=== PATIENT | female | born 1995 | race Caucasian/White ===

== ENCOUNTER 2024-07-23 23:47 | Observation (INO) | payer MEDICAID, SELFPAY ==
[2024-07-23 23:55] VITALS: BP 111/55; PULSE 67; PULSE 97; RESP 17; RESP 99; TEMP 36.5; O2SAT 98
[2024-07-24] VITALS: BP 104/59; PULSE 75
[2024-07-24 00:06] VITALS: BMI 32.5
[2024-07-24 00:27] VITALS: BP 100/53; PULSE 68
[2024-07-24 00:37] LABS: ROM Kit Lot # 578010271; ROM Swab Mixed By: JP; Rupture of Fetal Membranes Negative (Negative); Swb Mxed in Solvent 1 min? Yes
[2024-07-24 00:55] VITALS: BP 104/55; PULSE 66
[2024-07-24 01:05] LABS: ROM Kit Lot # 578010271
[2024-07-24 01:06] LABS: ROM Swab Mixed By: JP; Rupture of Fetal Membranes Negative (Negative); Swb Mxed in Solvent 1 min? Yes
== END 2024-07-24 01:25 | disposition home or self-care (01) ==
PROVIDERS: Admitting Provider Obstetrics & Gynecology; Visit Provider Obstetrics & Gynecology
DX: Z34.83 Encounter for supervision of other normal pregnancy, third trimester (principal); Z3A.37 37 weeks gestation of pregnancy
CPT/HCPCS: 59025; 59899; 84112

== ENCOUNTER 2024-08-13 04:52 | Inpatient (IN) | payer MEDICAID, SELFPAY ==
[2024-08-13] VITALS (163 sets, daily range): BP systolic 95–133; BP diastolic 50–85; PULSE 56–102; RESP 15–98; TEMP 36.6–37.6; O2SAT 77–100; BMI 31.6
[2024-08-13] MEDS: fentaNYL CIT INJ 50 mCg/ML AMP 2ML 100 MCG IVP ×2 (06:39→11:55)
[2024-08-13] MEDS: RINGERS LACTATED 1000 ML 1,000 ML 999 ML IV ×2 (06:39→08:20)
[2024-08-13 07:24] LABS: Amphetamine/Metham Scrn,Ur OB Negative (Negative); Benzoylecgonine Screen, Ur OB Negative (Negative); Opiate Screen,Urine OB Negative (Negative); THC Screen,Urine OB Positive (Negative); THC U Confirm* See Sep Rpt
[2024-08-13 07:44] LABS: Basophils % (Auto) 0 % (0-2.5); Eosinophils # (Auto) 0.1 Thou/mm3 (0.0-0.5); Eosinophils % (Auto) 1 % (0-10); Hematocrit 32.4 % (36.0-46.0); Hemoglobin 11.7 g/dL (12.0-16.0); Immature Granulocytes % (Auto) 1 % (0-0); Immature Granulocytes Auto 0.14 Thou/mm3 (0.00-0.00); Lymphocytes # (Auto) 1.5 Thou/mm3 (1.0-4.8); Lymphocytes % (Auto) 12 % (10-50); Mean Corpuscular HGB Conc 36.1 g/dl (31.0-37.0); Mean Corpuscular Hemoglobin 30.5 pg (25.0-35.0); Mean Corpuscular Volume 84 fL (80-100); Monocytes # (Auto) 0.7 Thou/mm3 (0.0-0.8); Monocytes % (Auto) 5 % (0-12); Neutrophils # (Auto) 10.1 Thou/mm3 (1.8-7.7); Neutrophils % (Auto) 81 % (37-80); Nucleated Red Blood Cell % 0 /100 WBC (0); Platelet Count 138 Thou/mm3 (140-440); Red Blood Count 3.84 Miln/mm3 (4.00-5.20); White Blood Count 12.6 Thou/mm3 (3.6-11.0)
[2024-08-13 07:44] LABS: Syphilis Nonreactive (Nonreactive)
--- NOTE | 2024-08-13 08:16 | PD.LDHP ---
Documentation for date of: 08/13/24 OB Labor/Induct. HPI History of Present Illness : 4 Para: 1 Term pregnancies: 1 pregnancies: 0 Living children: 0 History of Abortions: Spontaneous and Elective: 2 History of Vaginal deliveries: 1 History of sections: No History of : No Date of last menstrual period: 12/25/23 CAMILO: 08/13/24 Gestational Age (weeks): 40 Gestational Age (days): 0 Gestational age based on last menstrual period: 33 History of present illness: Patient presents for regular, painful ctx. No LOF. No vaginal bleeding. Normal movement. No fevers/chills. History of Present Dating criteria: based on 1st trimester US only Adequate Care: Yes Narrative: : 2016, 11wk sab with D&C G2: 2018, early sab with D&C G3: term uncomplicated M 2022 G4: current, uncomplicated. Starting BMI 27, early HgbA1c 5 Labs Maternal Blood Type: B Pos Labs: Positive: Rubella Titre, Negative: RPR, Hepatitis B, HIV, Chlamydia, Gonorrhea and Group Beta Strep and Unknown: Herpes Type 1, Herpes Type 2 and Covid-19 Narrative: Starting HgbA1c 5 1hr glucola 109 Review of Systems Review of Systems Narrative Review of Systems: Review of Systems Systems Reviewed: All systems reviewed, normal except as documented Constitutional Constitutional: Denies body ache(s), Denies chills, Denies fever(s) and Denies headache(s) ENT Ears, Nose, Mouth, and Throat: Denies headache(s) and Denies vertigo Cardiovascular Cardiovascular: Denies chest pain, Denies palpitations, Denies dyspnea and Denies syncope Respiratory Respiratory: Denies cough, Denies dyspnea Gastrointestinal Gastrointestinal: Denies nausea and Denies vomiting Neurologic Neurologic: Denies convulsions, Denies headache(s), Denies other visual disturbances, Denies syncope and Denies vertigo Past Medical History Family History OTHER FAMILY HX: non-contributory Surgical History SURGICAL: Negative Section OTHER SURGICAL HX: D&C x2, tonsillectomy Social History SOCIAL: , good support. One child. No tobacco/ETOH/illicit drug use. Past Medical History Comments PMH COMMENT: Starting BMI 27 Meds Home Medications and Allergies Home Medications ?Medication ?Instructions ?Recorded ?Confirmed ?Type vit no.95-ferrous 1 tab PO QDAY 07/24/24 08/13/24 History fumarate 28 mg-folic acid 800 mcg tablet () Allergies Allergy/AdvReac Type Severity Reaction Status Date / Time No Known Allergies Allergy Verified 08/13/24 04:59 OB Exam Physical Exam Vital signs: Temp Pulse Resp BP Pulse Ox 97.8 F 73 18 124/64 100 08/13/24 05:31 08/13/24 06:19 08/13/24 04:58 08/13/24 06:19 08/13/24 08:12 Narrative: General: well developed, well nourished, no acute distress, conversant Cardiac: normal heart rate Lungs: breathing without distress Abdomen: soft, gravid, non-tender, no rebound or guarding Extremities: no pain with palpation of calves Detailed Labor and Delivery Exam Dilation (cm): 4 Effacement (%): 75 Cervix position: mid station: -2 Consistency: soft Presentation: Vertex Membranes: intact monitor accelerations: 15x15 monitor decelerations: None custodial variability: Moderate (11-25) Contraction frequency (min): q3-5min OB Results Labs 08/13/24 07:30 OB Assessment & Plan Assessment and Plan (1) Active labor at term: Status: Acute Assessment and plan: Clau is a 28yo with SIUP at 40&0wk presenting in early labor. Regular/painful contractions, SCE changed from 2cm to 4/75/-2 over time. Vitals wnl, benign exam. Reassuring assessment. PMhx/ complicated by: Starting BMI 27, early HgbA1c 5. 1hr glucola 109. Dated by 1st trimester ultrasound, dates changed from lmp Good care with Dr. Greene's office Plan: -Admit to L&D -Establish IV, routine labs -CEFM -Clear liquid diet -[employer]/consent re: -GBS status: negative -Anticipate -Safe to proceed
[2024-08-13] MEDS: OXYTOCIN in NS 20 units 20 UNIT/1,000 ML BAG 125 UNIT IV (11:52)
[2024-08-13] MEDS: LIDOCAINE HCL 1% 20 ML VIAL INFL (12:06)
[2024-08-13] MEDS: MISOPROSTOL 200 mCg TABLET 800 MCG PR (12:13)
--- NOTE | 2024-08-13 12:45 | OBDSUM_ITS ---
Data ([place]) Data Hx Section: No : 4 Term: 1 : 0 Livin Abortions: Spontaneous & Theraputic: 2 Delivery Data ([place]) Labor Data Initiation of labor: Spontaneous Induction/Augmentation Agent: None ROM date: 08/13/24 ROM time: 10:46 Amniotic membrane rupture type: Artificial Amniotic fluid description: Clear Delivery Data Complete dilation date: 08/13/24 Complete dilation time: 11:44 [place] delivery date: 08/13/24 [place] delivery time: 11:47 Placenta delivery date: 08/13/24 Placenta delivery time: 11:52 Delivered by: Ivanna Powell Delivery nurse: jennifer Mari nurse: mariaa james Support person(s) at delivery: FOB Other staff at delivery: MANUELA Landeros Delivery Method Delivery method: Normal Vaginal Delivery Presentation: Vertex Anesthesia Type Anesthesia Type: Epidural Placenta Placenta delivery description: Spontaneous EBL Estimated blood loss (ml): 300 Umbilical Cord cord description: 3 Vessels Additional Procedures Clau is a 28yo [id number] s/p uncomplicated at 40&0wk after presenting in early labor, delivering at 1147 on 08/13/2024. On presentation, SCE was 2cm. She progressed to C/C/0 at which point she began pushing. She received an epidural. With good maternal pushing efforts, 's head delivered OA and restituted MAYELA. Right anterior shoulder delivered easily followed by posterior shoulder and corpus. Gush of frankly bloody fluid occurred with delivery of shoulder- fluid previously clear. had spontaneous cry and was vigorous. Apgars 9/9. Infant placed on maternal abdomen where nose/mouth were suctioned and infant dried/stimulated. After approximately 1 minute, cord was clamped x2 and cut by FOB. Cord blood not able to be collected for typing since cord went white before it was clamped 2/2 delayed clamping. With fundal massage and cord traction, placenta delivered spontaneously and intact with 3 vessel centrally inserted cord. Bimanual massage performed and IV pitocin given per protocol with fundus then firm at u-2cm and hemostasis noted. Inspection of perineum and vagina revealed bilateral labial lacerations (Left side deep and lead a small ways into left vaginal sidewall, right side superfi cial) which were repaired in routine fashion with 4-0 and 3-0 vicryl, after anesthetizing with 1% lidocaine- total reapproximation and hemostasis achieved. Small trickle of blood, so sweep just within cervix/MARTHA performed which retrieved a modest amount of clot. Bimanual massage performed. Cytotec 800mcg MN placed for continued prophylaxis against bleeding. All counts correct x2. Mom and were doing well when I left the room. Ivanna Powell MD [place] Data ([facility]) Data [place]'s gender: Male 1 minute: 9 5 minutes: 9
[2024-08-13 18:48] LABS: Basophils % (Auto) 0 % (0-2.5); Eosinophils % (Auto) 0 % (0-10); Hematocrit 30.6 % (36.0-46.0); Hemoglobin 10.9 g/dL (12.0-16.0); Immature Granulocytes % (Auto) 1 % (0-0); Immature Granulocytes Auto 0.12 Thou/mm3 (0.00-0.00); Lymphocytes # (Auto) 1.3 Thou/mm3 (1.0-4.8); Lymphocytes % (Auto) 8 % (10-50); Mean Corpuscular HGB Conc 35.6 g/dl (31.0-37.0); Mean Corpuscular Hemoglobin 30.9 pg (25.0-35.0); Mean Corpuscular Volume 87 fL (80-100); Monocytes # (Auto) 1.2 Thou/mm3 (0.0-0.8); Monocytes % (Auto) 7 % (0-12); Neutrophils # (Auto) 14.8 Thou/mm3 (1.8-7.7); Neutrophils % (Auto) 85 % (37-80); Nucleated Red Blood Cell % 0 /100 WBC (0); Platelet Count 147 Thou/mm3 (140-440); RDW Standard Deviation 40.5 fL (36.4-46.3); Red Blood Count 3.53 Miln/mm3 (4.00-5.20); White Blood Count 17.4 Thou/mm3 (3.6-11.0)
[2024-08-13] MEDS: DOCUSATE SOD 100 MG CAPSULE PO (21:51)
[2024-08-13] MEDS: IBUPROFEN TAB 400 MG TABLET 800 MG PO (21:52)
[2024-08-14 04:10] VITALS: BP 102/72; PULSE 61; RESP 16; TEMP 36.7; O2SAT 99
--- NOTE | 2024-08-14 07:37 | PD.LDDS ---
DS: Providers Provider Date of admission: 08/13/24 06:09 Primary care physician: Physician No Primary/Family Admitting Provider: Ivanna Powell MD Attending Provider on Admission: Ivanna Powell MD Consults: 08/13/24 12:29 Referral Routine Comment: Attending Provider on DC: Ivanna Powell MD Discharging Provider: Ivanna Powell MD DS: Diagnosis Discharge Diagnosis (1) Active labor at term: Status: Acute (2) Status post vaginal delivery: Status: Acute Problem List Completed Was Problem List Reviewed/Reconciled?: Yes Summary/Hosp Course Brief History: Patient presents for regular, painful ctx. No LOF. No vaginal bleeding. Normal movement. No fevers/chills. Clau is a 28yo [id number] s/p uncomplicated at 40&0wk after presenting in labor, delivering at 1147 on 08/13/24. She has had an uncomplicated course, meeting all milestones and feels ready for discharge home. She is ambulating without lightheadedness, tolerating regular diet no n/v, spontaneously voiding without issue. She has no chest pain or shortness of breath. No fevers or chills. Minimal, appropriate discomfort. Vitals normal, benign exam. Hemodynamically stable with no evidence of infection. PP Hgb 10.9 from 11.7. Peripartum Data Delivery Method: Normal Vaginal Delivery Status at Discharge Functional status at discharge: independent ambulation Overall status at discharge: patient is back to baseline Time Spent with Patient Time attestation: Total time spent providing and/or coordinating discharge services: Exam Vital Signs Temp Pulse Resp BP Pulse Ox O2 Del Method 98.1 F 61 16 102/72 99 Room Air 08/14/24 04:10 08/14/24 04:10 08/14/24 04:10 08/14/24 04:10 08/14/24 04:10 08/14/24 04:10 Narrative Exam General: well developed, well nourished, no acute distress, conversant Cardiac: normal heart rate Lungs: breathing without distress Abdomen: soft, post-gravid, non-tender, no rebound or guarding, Fundus firm at u-3cm. Extremities: no pain with palpation of calves, trace edema of BLE Discharge Plan Plan Patient Disposition: HOME (Self Care) Patient condition on transfer: Stable Prescriptions/Referrals Prescriptions/Med Rec: New docusate sodium 100 mg Capsule 100 mg PO BID 10 Days Qty: 20 0RF ibuprofen 800 mg tablet 800 mg PO Q8H PRN (Reason: See Comments) 10 Days Qty: 20 0RF No Action PNV cmb#95-ferrous fumarate-FA [] 28 mg iron- 800 mcg tablet 1 tab PO QDAY Patient Comments: TAKE 1 TABLET BY MOUTH EVERY DAY Referrals: No Primary/Family,Physician [Primary Care Provider] - Patient/Caregiver Discharge Instructions Discharge Activity: activity as tolerated and other Other Discharge Activity Instructions:: vaginal rest and no heavy lifting more than 10 pounds for 6 weeks Other Discharge Diet Instructions: regular Education Materials: After a Vaginal Print Language: Occitan Activity Restrictions/Additional Instructions: follow up with your OBGYN in 2-4 weeks, call clinic for appointment Stand Alone Forms: [facility] Award Info., Patient Portal Info Letter Discharge Order Discharge Orders: Discharge (Routine); Ordered 08/14/24 Ordered By: Ivanna Powell Planned Discharge Date 08/14/24
[2024-08-14 08:10] VITALS: BP 117/78; PULSE 63; RESP 15; TEMP 36.9; O2SAT 98
[2024-08-14] MEDS: PRENATAL VITAMIN/FE FUM/FA TABLET 1 TAB PO (08:40)
[2024-08-14 11:25] VITALS: BP 120/78; PULSE 81; RESP 16; TEMP 36.6; O2SAT 98
== END 2024-08-14 14:44 | disposition home or self-care (01) | DRG 560 ==
LOC: S4SX 14:11 → S4NX 14:40
PROVIDERS: Admitting Provider Obstetrics & Gynecology; Visit Provider Obstetrics & Gynecology
DX: O48.0 Post-term pregnancy (principal); O70.0 First degree perineal laceration during delivery; Z37.0 Single live birth; Z3A.40 40 weeks gestation of pregnancy
CPT/HCPCS: 36415; 59025; 80307; 85025; 86780; 86850; 86900; 86901; J2590; J2795; J3010; J3490; J7120; S0191; A9270